=== PATIENT | male | born 1930 | race Caucasian/White ===

== ENCOUNTER 2016-08-13 05:08 | Day surgery (SDC) | payer OTHER ==
[2016-08-13] MEDS ORDERED: LR 1,000 ML ONE (05:31)
[2016-08-13] MEDS ORDERED: KEFZOL 2 GM/D5W 50 ML ONE (05:32)
[2016-08-13] MEDS ORDERED: MARCAINE 0.25% PF ONE (06:37)
[2016-08-13] MEDS ORDERED: NEOSPORIN G.U. IRRIGANT ONE (06:37)
[2016-08-13] MEDS ORDERED: DIPRIVAN 1% ONE (07:27)
[2016-08-13] MEDS ORDERED: FENTANYL ONE ×2 (07:27→07:38)
[2016-08-13 08:23] VITALS: BP 144/66
--- NOTE | 2016-08-13 09:33 | OPERATIVE NOTE ---
PROCEDURE DATE: 08/13/2016 DATE OF SURGERY: 08/13/2016. PREOPERATIVE DIAGNOSIS: Left carpal tunnel syndrome. POSTOPERATIVE DIAGNOSIS: Left carpal tunnel syndrome. PROCEDURE: Left carpal tunnel release. SURGEON: Dr. Koby Gomez. VIDEOGAME DESIGNER: PAIGE Snyder. ANESTHESIA: General. IV FLUIDS: 400 mL lactated Ringer. ESTIMATED BLOOD LOSS: Zero. TOURNIQUET TIME: 9 minutes at 250 mmHg. COMPLICATIONS: None. INDICATIONS: The patient is a pleasant 86-year-old male with chronic history of pain, paresthesia of left upper extremity. EMG nerve study revealed left carpal tunnel syndrome. Recommendation to proceed with left carpal tunnel release was offered. Risks and benefits of surgery were explained, including the risks of anesthesia, , bleeding, infection, failure to relieve pain, postoperative stiffness, nerve injury, blood clots, and other imponderables. All questions were answered. The patient's family wished to proceed with surgery. DETAILS OF OPERATION: The patient was taken to the operating room and placed supine on the operating table. Once adequate anesthesia was obtained, patient's left upper extremity was subsequently prepped and draped in the usual sterile fashion. Esmarch was used to exsanguinate the left upper extremity and the tourniquet was inflated to 250 mmHg. Attention was turned to the base of the hand in line with the third web space. A small longitudinal incision was made. Careful dissection was performed through the superficial fascia. Right angle retractor was then placed. The transverse carpal ligament was then identified and carefully incised full thickness with a 15 blade. A Tererro was then passed in the undersurface distally. Under direct visualization, the distal aspect of the transverse carpal ligament was then released. In likewise fashion, a Tererro was then passed proximally and the proximal aspect of the transverse carpal ligament was released along with the volar fascia. There appeared to be good release both proximally and distally. The median nerve had no obvious pathology. The wound was copiously irrigated. A 4-0 nylon was used to close skin in an interrupted fashion. Quarter percent Marcaine without epinephrine was injected locally. Adaptic, sterile 4 x 4s, Webril and Jaison wrap was applied to the left upper extremity. Patient tolerated the procedure well with no complications. Transferred to recovery room in stable condition.
[2016-08-13] MEDS ORDERED: DECADRON ONE (11:46)
[2016-08-13] MEDS ORDERED: NEO-SYNEPHRINE ONE (11:46)
[2016-08-13] MEDS ORDERED: ZOFRAN ONE (11:46)
[2016-08-13] MEDS ORDERED: EPHEDRINE ONE (11:46)
[2016-08-13] MEDS ORDERED: XYLOCAINE-MPF 2% ONE (11:46)
== END 2016-08-13 08:28 | disposition home or self-care (01) ==
LOC: OPS 05:08
PROVIDERS: ATTEND Orthopaedic Surgery Adult Reconstructive Orthopaedic Surgery
DX: G56.02 Carpal tunnel syndrome, left upper limb (principal); M18.12 Unilateral primary osteoarthritis of first carpometacarpal joint, left hand; G89.29 Other chronic pain; M79.622 Pain in left upper arm; I10 Essential (primary) hypertension; E78.5 Hyperlipidemia, unspecified; I25.10 Atherosclerotic heart disease of native coronary artery without angina pectoris; R20.0 Anesthesia of skin; R20.9 Unspecified disturbances of skin sensation; Z95.5 Presence of coronary angioplasty implant and graft; Z95.0 Presence of cardiac pacemaker; Z98.1 Arthrodesis status; Z95.1 Presence of aortocoronary bypass graft; Z79.02 Long term (current) use of antithrombotics/antiplatelets; Z79.82 Long term (current) use of aspirin; Z79.899 Other long term (current) drug therapy
CPT/HCPCS: J0690; J1100; J2370; J2405; J3010; J7120; S0020

== ENCOUNTER 2016-11-09 09:21 | Observation (INO) ==
[2016-11-09 10:36] LABS: MANUAL DIFF NEEDED? NO
--- NOTE | 2016-11-09 10:38 | PROVIDER DOCUMENTATION ---
HPI-Neurological Disorder - General Chief Complaint: Numbness Stated Complaint: STROKE LIKE SX Time Seen by Provider: 11/09/16 09:59 Source: patient Allergies/Adverse Reactions: Patient Allergies Allergy/AdvReac Type Severity Reaction Status Date / Time No Known Allergies Allergy Verified 11/20/15 09:59 Home Medications: Home Medication List Medication Instructions Recorded Confirmed Last Taken Type Aspirin 81 mg PO DAILY 08/11/16 11/09/16 11/08/16 09:00 History 81 MG Carvedilol [Coreg] 25 mg PO DAILY 08/11/16 11/09/16 11/08/16 09:00 History 25 MG Clopidogrel [Plavix] 75 mg PO DAILY 08/11/16 11/09/16 11/08/16 09:00 History 75 MG Losartan [Cozaar] 100 mg PO DAILY 08/11/16 11/09/16 11/08/16 09:00 History 100 MG Nifedipine E.r. [Adalat cc] 30 mg PO DAILY 08/11/16 11/09/16 11/08/16 09:00 History 30 MG - History of Present Illness-Neuro Nature of Presenting Problem: Pt is an 83yo M who is fully functional and independent. Reports got up at 7AM this morning and started to feel L facial and LUE numbness. Pt is pretty positive that the symptoms started after he woke up and got up. He had no focal weakness and he had no difficulty putting his cloth on. Reports his BP at that time when he checked at home was 172/72, which was normal for him. Denies PARDO/N/V /blurry vision/LOC/CP/F/C. Reports his symptoms are resolving when see at ER. Pt has a pacer since 6-7 years ago and he had a new device placed X 2 years ago. Denies any concerns for pacer malfunction. Headache Location: reports: other (See above) Severity: reports: mild Onset/Duration: reports: 1-3 hours ago Timing: reports: still present, improving Context: denies: found unresponsive by half-way staff, found unresponsive by bystander, drug abuse, overdose, head injury, recent infection, fever, impaired speech, paresthesia, facial droop, falling, seizure activity Approximate time patient was last seen normal?: 07:00 (This morning) Character of Altered Mental Status: denies: disoriented, confused, combative, agitated, trouble concentrating, unresponsive, seizure activity, decreased responsiveness, unchanged from baseline Any recent trauma/injury?: reports: none Character of Deficits: reports: altered sensation. denies: new weakness, vision problem/glaucoma, impaired speech, impaired swallowing, decreased ability to stand, decreased ability to walk, falling New weakness or altered sensation location:: reports: RUE, right facial Cognitive Baseline: alert, oriented x3 Gait Baseline: walks without assistance Associated Symptoms: reports: paresthesia. denies: short of breath, headache, fainting, dizziness, confusion, chest pain, nausea, numbness in legs/feet, ringing in ears, seizures, sleepy, slurred speech, tingling in legs/feet, trouble walking, vomiting Similar Symptoms Previously?: No Recently seen or treated by another doctor?: No - Seizure First time to have a seizure?: No Witnessed seizure?: No Review of Systems - Adult - REVIEW OF SYSTEMS - ADULT Constitutional: reports: no symptoms reported. denies: fever, fatique Eyes: reports: no symptoms reported Ears, Nose, Mouth & Throat: reports: no symptoms reported Cardiovascular: reports: see HPI. denies: chest pain, edema, heart murmur, irregular heart rate Respiratory: reports: no symptoms reported, see HPI. denies: cough Gastrointestinal: reports: no symptoms reported Genitourinary: reports: no symptoms reported Musculoskeletal: reports: no symptoms reported Integumentary: reports: no symptoms reported Neurological: reports: see HPI, paresthesia. denies: ataxia, dizziness/vertigo , headache/migraines, loss of balance, numbness, seizure, slurred speech, syncope, tremors Psychiatric: reports: no symptoms reported. denies: anxiety, anti-depressant use, alcohol/drug dependence, depression, emotional problems, insomnia, panic attacks, suicidal thoughts Endocrine: reports: no symptoms reported Hematologic/Lymphatic: reports: no symptoms reported Allergic/Immunologic: reports: no symptoms reported All Other Systems: Reviewed and Negative Past History - Adult - PAST MEDICAL HISTORY-ADULT Review of Records: reports: Old Records Reviewed, Nursing Assessment Review, Medications Reviewed, Social history reviewed & non-contributory. Cardiovascular: reports: CAD, HTN Musculoskeletal: reports: intervertebral disc disease - PRIOR SURGERIES/PROCEDURES Surgical/Procedure History: reports: CABG, cardiac stent, back/neck - IMMUNIZATION STATUS Childhood Immunizations: See Nurse Assessment Flu Vaccine: See Nurse Assessment - FAMILY HISTORY Family History: reviewed, not pertinent Physical Exam- Neurological - Physical Exam-Neuro Initial Vital Signs Reviewed: Yes General Appearance: appears well, alert, mild distress Eye Exam: bilateral eye: PERRL, EOMI HENMT: normocephalic/atraumatic, moist mucous membranes, normal ENT inspection Head Injury: no evidence of injury, active bleeding Neck: non-tender, full range of motion, supple Respiratory: chest non-tender, lungs clear, normal breath sounds, no pleuratic chest pain, no respiratory distress, no accessory muscle use, respiratory distress, decreased breath sounds Cardiovascular: normal peripheral pulses, regular rate, rhythm, no edema, no gallop, no JVD, no murmur Abdominal Exam: normal bowel sounds, non tender, soft, no organomegaly, no pulsatile mass, abdominal bruit, abnormal bowel sounds Extremity: normal range of motion, non-tender, normal gait, normal inspection, no pedal edema, no calf tenderness, normal capillary refill inspector casing Exam: normal hearing, normal speech, PERRL Coordination/Gait: normal finger to nose, normal gait, negative Romberg's sign Motor/Sensory: no motor deficit, no sensory deficit, no pronator drift, negative Babinski's sign. negative: sensory deficit, weak motor strength RUE, weak motor strength LUE, weak motor strength RLE, weak motor strength LLE Neurologic: no motor/sensory deficits, abnormal gait, aphasia. negative: facial droop, focal weakness, motor weakness, sensory deficit Integumentary: normal color, normal turgor, warm/dry - Glascow Coma Scale Best Eye Response: (4) open spontaneously Best Verbal Response: (5) oriented Best Motor Response: (6) obeys commands Total Glascow Score: 15 Progress - PLAN OF CARE/RESULTS Progress/Plan/Lab Results: Vital Signs - 8 hr 11/09/16 09:23 11/09/16 11:04 Temperature 97.7 F Pulse Rate 60 60 Respiratory Rate 20 17 Blood Pressure 170/76 183/83 O2 Sat by Pulse Oximetry 100 98 Laboratory Results - last 24 hr 11/09/16 11/09/16 11/09/16 09:45 09:45 09:45 WBC 6.58 RBC 3.83 L Hgb 11.7 L Hct 34.7 L MCV 90.6 MCH 30.5 MCHC 33.7 RDW Std Deviation 13.6 Plt Count 204 MPV 9.7 Immature Gran % (Auto) 0.3 Neut % (Auto) 62.2 Lymph % (Auto) 21.0 [place] % (Auto) 12.9 H Eos % (Auto) 3.0 Baso % (Auto) 0.6 Immature Gran # (Auto) 0.02 Neut # (Auto) 4.09 Lymph # (Auto) 1.38 [place] # (Auto) 0.85 H Eos # (Auto) 0.20 Baso # (Auto) 0.04 PT 10.4 INR 0.99 PTT (Actin FS) 25.9 Sodium 140 Potassium 4.4 Chloride 105 Carbon Dioxide 25 Anion Gap 10 BUN 22 Creatinine 1.3 H Estimated GFR/1.73 m2 52 BUN/Creatinine Ratio 17 Glucose 89 Calculated Osmolality 282 Calcium 8.4 L Total Bilirubin 0.26 AST 17 ALT 12 Alkaline Phosphatase 100 Creatine Kinase 52 Troponin T Total Protein 6.6 Albumin 3.2 L Globulin 3.4 Albumin/Globulin Ratio 0.9 Urine Source Urine Color Urine Turbidity Urine pH Ur Specific [place] Urine Protein Ur Glucose (Stick) Ur Ketones (Stick) Urine Blood Urine Nitrite Urine Bilirubin Urobilinogen Dipstick Urine Leukocytes Urine WBC (Auto) Urine RBC (Auto) U Epithel Cells (Auto) Urine Bacteria (Auto) 11/09/16 11/09/16 09:45 10:47 WBC RBC Hgb Hct MCV MCH MCHC RDW Std Deviation Plt Count MPV Immature Gran % (Auto) Neut % (Auto) Lymph % (Auto) [place] % (Auto) Eos % (Auto) Baso % (Auto) Immature Gran # (Auto) Neut # (Auto) Lymph # (Auto) [place] # (Auto) Eos # (Auto) Baso # (Auto) PT INR PTT (Actin FS) Sodium Potassium Chloride Carbon Dioxide Anion Gap BUN Creatinine Estimated GFR/1.73 m2 BUN/Creatinine Ratio Glucose Calculated Osmolality Calcium Total Bilirubin AST ALT Alkaline Phosphatase Creatine Kinase Troponin T < 0.010 Total Protein Albumin Globulin Albumin/Globulin Ratio Urine Source CLEAN CATCH Urine Color STRAW Urine Turbidity CLEAR Urine pH 6.5 Ur Specific [place] 1.004 Urine Protein 300 A Ur Glucose (Stick) NEGATIVE Ur Ketones (Stick) NEGATIVE Urine Blood MODERATE A Urine Nitrite NEGATIVE Urine Bilirubin NEGATIVE Urobilinogen Dipstick NORMAL Urine Leukocytes NEGATIVE Urine WBC (Auto) <10 Urine RBC (Auto) 10-20 A U Epithel Cells (Auto) <10 Urine Bacteria (Auto) NEGATIVE Orders Category Date Time Status Cardiac Monitoring DIRECTED Care 11/09/16 10:12 Active Finger Stick Blood Sugar (ED) DIRECTED Care 11/09/16 10:12 Active Saline Loc NOW Care 11/09/16 10:12 Active CHEST-PORTABLE [RAD] Stat Exams 11/09/16 10:12 Taken HEAD W/O CONTRAST [CT] Stat Exams 11/09/16 10:12 Completed CBC WITH ELECTRONIC DIFF [HEME] Stat Lab 11/09/16 09:45 Completed CK PROFILE [SP CHEM] Stat Lab 11/09/16 09:45 Completed COMPREHENSIVE METABOLIC PANEL [CHEM] Stat Lab 11/09/16 09:45 Completed PROTIME WITH INR [COAG] Stat Lab 11/09/16 09:45 Completed PTT [COAG] Stat Lab 11/09/16 09:45 Completed TROPONIN T Stat Lab 11/09/16 09:45 Completed URINALYSIS W/POSS RFLX CULT-1 [URINALYSIS] Stat Lab 11/09/16 10:47 Completed Pulse Oximetry Stat Oth 11/09/16 10:12 Completed EKG [EKG] Stat Ther 11/09/16 10:12 Ordered Result Diagrams: 11/09/16 09:45 11/09/16 09:45 - REASSESSMENT Reassessment #1 Time Reassessed: 11:58 Status: improving (Pt is doing stable. Pt is still has T hand numbness. BP was 203/98 at one point. TIA was most likely the diagnosis. Pt and family requested to be admitted and closely monitored. Called hospitalist for admission. Pt does not feel safe to do an out pt w/u tomorrow via PCP. Plus pt lost his last year and he lives at home by himself.) - EKG 1 EKG Interpretation (*Must complete 3 of following elements*): Abnormal Rate: 61 Rhythm: Paced - XRAY 1 XRAY Study: Chest Impression: Normal - CT/MRI 1 CT Study: Head Impression: Normal - CONSULTS/PCP/HOSPITALIST Notification #1 *Consult/PCP/Hospitalist*: Rudy/Dr. Cid Time Discussed: 12:02 Consult Disposition: Will see in ED, Admit Departure - Departure Date of Disposition Decision: 11/09/16 Time of Disposition Decision: 12:01 DIAGNOSIS: TIA (transient ischemic attack) Qualifiers: Transient cerebral ischemia type: unspecified Qualified Code(s): G45.9 - Transient cerebral ischemic attack, unspecified Disposition: ADMITTED INPATIENT 09 Certified Medical Emergency: Emergent Condition: Stable Referrals and Follow-Ups: Ramirez Parekh [Primary Care Provider] - - Critical Care Note This patient required my direct & personal management of CC.: No
--- NOTE | 2016-11-09 10:42 | Diag Imaging Result Doc PS360 ---
EXAM: HEAD W/O CONTRAST INDICATION: AMS COMPARISON: None. 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 There is no definite acute infarct given the limited sensitivity of CT versus MRI. There is no discrete intracranial mass, mass effect, or intracranial hemorrhage. There is minimal ethmoid sinus mucosal disease. Surrounding soft tissues and bony structures are grossly unremarkable, otherwise. IMPRESSION: No evidence of acute intracranial pathology. Electronically signed by Johnson Degroot 11/09/2016 10:40 AM
[2016-11-09 10:43] LABS: BASO% 0.6 % (0.0-0.8); HEMATOCRIT 34.7 % (42.0-52.0); HEMOGLOBIN 11.7 g/dL (14.0-18.0); IMM GRAN# 0.02 X1000 (0.0-0.04); IMM GRAN% 0.3 % (0.0-0.5); LYMPH# 1.38 X1000 (1.2-3.4); MCH 30.5 PG (27-31); MCHC 33.7 g/dL (33-37); MCV 90.6 FL (81-99); MONO# 0.85 X1000 (0.11-0.59); MONO% 12.9 % (1.7-9.3); MPV 9.7 FL (7.4-10.4); NEUT% 62.2 % (42.2-75.2); PLT 204 X1000 (130-400); RBC 3.83 XMIL (4.7-6.1)
[2016-11-09 10:51] LABS: INR 0.99; PROTIME 10.4 Seconds (9.2-11.7); PTT 25.9 Seconds (22.0-36.0)
[2016-11-09 10:57] LABS: ALBUMIN 3.2 g/dL (3.5-5.0); CALCIUM 8.4 mg/dL (8.8-10.2); POTASSIUM 4.4 mmol/L (3.5-5.1); TOTAL BILIRUBIN 0.26 mg/dL (0.20-1.00); TOTAL PROTEIN 6.6 g/dL (6.3-8.3)
[2016-11-09 11:10] LABS: URINE CULTURE NEEDED? NO; URINE MICRO REVIEW NEEDED? NO; URINE SOURCE CLEAN CATCH
[2016-11-09 11:12] LABS: BILIRUBIN URINE NEGATIVE (NEGATIVE); BLOOD URINE MODERATE (NEGATIVE); COLOR STRAW; GLUCOSE URINE NEGATIVE (NEGATIVE); LEUKOCYTES URINE NEGATIVE (NEGATIVE); NITRITE URINE NEGATIVE (NEGATIVE); PH URINE 6.5; PROTEIN URINE 300 mg/dL (NEGATIVE); SP GRAVITY URINE 1.004; TURBIDITY URINE CLEAR (CLEAR); UROBILINOGEN URINE NORMAL (NORMAL)
[2016-11-09 11:13] LABS: UR EPITHELIAL CELLS <10 /HPF (<10); URINE BACTERIA NEGATIVE /HPF; URINE WBC <10 /HPF (<10)
--- NOTE | 2016-11-09 13:11 | Diag Imaging Result Doc PS360 ---
EXAM: CHEST-PORTABLE INDICATION: AMS TECHNIQUE: One view COMPARISON: 08/23/2015 FINDINGS: The lungs are grossly clear. There is no discrete pleural fluid collection or pneumothorax. There are stable CABG changes. A left-sided pacemaker is in stable position. Cardiac silhouette and central vasculature are grossly unremarkable, otherwise. IMPRESSION: Stable chest with no definite acute pathology. Electronically signed by Johnson Degroot 11/09/2016 1:08 PM
--- NOTE | 2016-11-09 14:53 | HISTORY AND PHYSICAL ---
FUNDER: Dr. Brenda Fernandez. PCP: Dr. Ramirez Parekh. CHIEF COMPLAINT: Right-sided weakness and numbness. HISTORY OF PRESENT ILLNESS: Mr. Weaver is a very pleasant 86-year-old male with a history of coronary disease status post SD and CABG, also with a history of a permanent pacemaker. Presents with acute onset of right facial numbness with that numbness radiating down his right arm and causing him to have right hand numbness and weakness. Began around 7 o' clock this morning while he was at home. Symptoms concerned him enough to come to the ER. In the ER he had a head CT done. It showed possibly a tiny chronic lacunar infarct involving the right caudate head otherwise nothing acute. His laboratory data showed some mild anemia and renal insufficiency but otherwise no acute findings there. His EKG shows paced rhythm. He is still currently having symptoms but is alert and oriented. He does not have any overt unilateral weakness but he does have subjective weakness and numbness on the right upper and lower extremity along with the right side of his face. He is going to be admitted for observation for further treatment and evaluation. Of note, he cannot have an MRI secondary to his pacemaker. PAST MEDICAL HISTORY: 1. Coronary disease status post SD. 2. Hypertension. 3. Questionable history of irregular heartbeat. The patient is unsure the exact name of but he states atrial fibrillation does not sound familiar to him. PAST SURGICAL HISTORY: He has had a CABG, pacemaker, coronary stenting and ACDF. SOCIAL HISTORY: No history of tobacco, alcohol or drug use. He lives alone. He has 2 daughters. FAMILY HISTORY: Noncontributory. REVIEW OF SYSTEMS: Fourteen-point review of systems obtained and found to be negative with the exception of the HPI. ALLERGIES: No known drug allergies. HOME MEDICATIONS: Aspirin 81 mg daily, Coreg 25 mg daily, Plavix 75 mg daily, Cozaar 100 mg daily, nifedipine ER 30 mg daily. PHYSICAL EXAMINATION: VITAL SIGNS: Blood pressure is 190/110, heart rate 60, respiratory rate 16, O2 saturation 98% on room air. Temperature is 97.7 degrees. GENERAL: This is a elderly but well-nourished male lying in hospital bed in no acute distress. NEUROLOGIC: The patient is awake and alert. He follows commands. Perhaps some very mild weakness of the right upper and lower extremity and decreased sensation in his right face, right hand and right foot versus the left. HEENT: Head atraumatic and normocephalic. His pupils are equal, round, reactive to light. Oral mucosa is moist. Trachea is midline. No JVD. CHEST: Clear to auscultation bilaterally. CV: Regular S1-S2 is noted. No murmurs. GI: Soft, nondistended, nontender. Bowel sounds positive. EXTREMITIES: One to 2+ edema bilaterally. Pulses diminished but palpable bilaterally. DIAGNOSTIC DATA: Head CT shows chronic changes, nothing acute. EKG paced rhythm. Chest x-ray negative. WBC 6.58, hemoglobin 11.7, hematocrit 34.7, platelet count is 204, 000. PT 10.5, INR 0.99, sodium 140, potassium 4.4, chloride 105, CO2 25, anion gap 10, BUN 22, creatinine 1.3, glucose is 89, calcium 8.4. LFTs within normal limits. Troponin negative. Albumin 3.2. UA shows 300 protein, moderate blood and 10-20 RBCs. ASSESSMENT AND PLAN: 1. Transient ischemic attack versus cerebrovascular accident: Patient's symptoms are consistent with cerebral ischemia. Unfortunately, we will not be able to do an MRI but he certainly has room for medication adjustments. We will make sure he is on a statin and continue his aspirin and Plavix. He is also on a beta-rebekah. Will check carotids and echocardiogram. We will also consult neuro, continue neuro checks and monitor telemetry on the floor. 2. Renal insufficiency: The patient's baseline creatinine seems to be 1.2 and today he is at 1.3 so he is not far off. Will add light IV fluid hydration and monitor. 3. Normocytic anemia: Will check iron studies and treat accordingly. 4. Coronary disease: Will check an echocardiogram, lipid panel, hemoglobin A1c as well as thyroid function, B12 and folate. He denied any chest pain but we will trend his enzymes. 5. Lower extremity edema: We are going to check an echocardiogram and get a proBNP as well, make sure and follow strict I's and O's. 6. Deep vein thrombosis prophylaxis will be provided with Lovenox. Further recommendations to follow. Dictated by CECILIA Zazueta for Petey Cid MD cc: MD Dr. Brenda Munoz Addendum: seen and examined. Agreed MTDD
[2016-11-09] MEDS: LOVENOX SUBQ SCH (18:37)
[2016-11-09] MEDS ORDERED: COREG PO ONE (20:18)
[2016-11-09] MEDS ORDERED: LIPITOR PO SCH (21:00)
--- NOTE | 2016-11-10 06:26 | EKG Report ---
Test Performed on : 11/09/2016 09:32:03 AM Test Reason : AMS Blood Pressure : / mmHG Vent. Rate : 060 BPM Atrial Rate : 060 BPM P-R Int : 166 ms QRS Dur : 174 ms QT Int : 484 ms P-R-T Axes : 000 230 160 degrees QTc Int : 484 ms Normal sinus rhythm. Right bundle branch block Septal infarct , age undetermined Abnormal ECG When compared with ECG of 23-AUG-2015 17:10, IA interval has decreased Left anterior fascicular block is no longer present Septal infarct is now present T wave inversion now evident in Lateral leads Unconfirmed Result
[2016-11-10 06:28] LABS: HEMATOCRIT 34.6 % (42.0-52.0); HEMOGLOBIN 11.4 g/dL (14.0-18.0); MCH 31.1 PG (27-31); MCHC 32.9 g/dL (33-37); MCV 94.3 FL (81-99); MPV 9.7 FL (7.4-10.4); RBC 3.67 XMIL (4.7-6.1)
[2016-11-10 06:46] LABS: HEMOGLOBIN A1C 5.5 % (4.8-6.0)
[2016-11-10 06:55] LABS: CALCIUM 8.6 mg/dL (8.8-10.2); POTASSIUM 4.9 mmol/L (3.5-5.1)
[2016-11-10] MEDS ORDERED: ADALAT CC PO SCH (09:00)
[2016-11-10] MEDS ORDERED: PLAVIX PO SCH (09:00)
[2016-11-10] MEDS ORDERED: ASPIRIN PO SCH (09:00)
[2016-11-10] MEDS ORDERED: COZAAR PO SCH (09:00)
[2016-11-10] MEDS ORDERED: COREG PO SCH (09:00)
--- NOTE | 2016-11-10 15:04 | ECHO REPORT ---
ORDER DATE: 11/09/2016 ECHOCARDIOGRAPHIC MEASUREMENTS: 1. Interventricular septum 1.1. Left ventricular posterior wall 0.9. Diastolic diameter 5.5. Left atrium 4.3. Aorta 3.1. Aortic valve leaflets are sclerosed, trileaflet. Pulmonic valve was normal. Mitral valve was normal. Tricuspid valve was normal. There is left atrial enlargement. 2. There is mitral annular calcification. 3. Pacing leads are noted in the right chamber. 4. There is mild mitral regurgitation. Mild tricuspid regurgitation. Peak velocity across the tricuspid valve was 2.7 m/sec. Pulmonary artery systolic pressure of 39 mmHg. There is trace pulmonary regurgitation. 5. Peak velocity across the aortic valve was 2.2 m/sec. There is no aortic stenosis. There is aortic sclerosis associated with mild aortic regurgitation. 6. There is no pericardial effusion or obvious intracardiac mass or thrombus. cc: MD Darrion Welsh CRNP
[2016-11-10] MEDS: LOVENOX SUBQ SCH (16:13)
[2016-11-10 16:48] VITALS: BP 179/76
--- NOTE | 2016-11-11 07:24 | Carotid Study ---
DATE: 11/09/2016 PROCEDURE: Bilateral duplex and color flow imaging of the carotid arteries was performed using a CrossReader Vivid E9 ultrasound system with a 9-L/9 transducer. REFERRING PHYSICIAN: Dr. Parekh. INTERPRETING PHYSICIAN: ANCELMO: Mook. INDICATIONS: TIA with right-sided weakness. OBSERVED DATA RIGHT LEFT Brachial Blood Pressure Carotid Pulse Bruits: Carotid/Sub DIAGRAM OF ULTRASOUND IMAGING R L RIGHT INT EXT INT EXT LEFT [place] (cm/s) Hen[place] (cm/s) Subclavian 77/0 Subclavian 91/0 CCA Proximal 62/11 CCA Proximal 81/15 CCA Distal 64/17 CCA Distal 65/15 Bulb 62/14 Bulb 78/17 ICA Proximal 121/33 ICA Proximal 58/15 ICA Mid 119/24 ICA Mid 64/17 ICA Distal 74/17 ICA Distal 81/26 ECA 42/4 ECA 99/8 Vertebral 53/13, antegrade flow Vertebral 43/10, antegrade flow ICA/CCA Ratio 1.88 ICA/CCA Ratio 0.99 % Stenosis 40-59% % Stenosis 0-39% FINDINGS: There appears to be moderate stenosis noted to the right carotid artery by strict velocity criteria. There is calcification and atherosclerosis of the bilateral carotid arteries. Both vertebral arteries are antegrade flow. PHYSICIAN INTERPRETATION: Moderate stenosis of the right carotid artery with stenosis 40-59%. The left side is normal to mild by strict velocity criteria. cc: MD Darrion Schulz CRNP
--- NOTE | 2016-11-11 08:06 | ECHO REPORT ---
ORDER DATE: 11/09/2016 ADDENDUM REPORT Normal left ventricular cavity size. Estimated ejection fraction of 40% to 45%. There is global hypokinesis. cc: MD Darrion Welsh CRNP
--- NOTE | 2016-11-11 10:44 | DISCHARGE SUMMARY ---
ADMISSION DATE: 11/09/2016 DISCHARGE DATE: 11/10/2016 PRINCIPAL LIBRARIAN: Dr. Brenda Fernandez. PRIMARY CARE DOCTOR: Dr. Ramirez Parekh. HOSPITAL COURSE: Mr. Weaver presented on 11/09/2016 with right-sided weakness and numbness. He is a very pleasant 86-year-old male history of coronary artery disease status post myocardial infarction and CABG. Also, history of permanent pacemaker. He presented with acute onset of right facial numbness and numbness radiating down to his right arm causing him to have right hand numbness and weakness. It began about 7:00 the morning of admission while he was at home. Symptoms concerned him enough for him to come to the emergency room. 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 Otherwise, nothing acute. An EKG showed sinus rhythm. There was a mild anemia. PAST MEDICAL HISTORY: 1. Coronary artery disease, status post myocardial infarction. 2. Hypertension. 3. Questionable history of irregular heartbeat in the past. Exact name he is not sure, but he thinks it was atrial fibrillation. He is status post coronary artery bypass graft. He has a pacemaker and coronary stenting and AICD or defibrillator pacemaker I believe. He was admitted to the hospital and showed continued improvement, and he really feels no residual and had no trouble with his speech. He is swallowing fine. No weakness in his hand. He had some renal insufficiency. Creatinine showed at 1.2, so, his renal function appeared stable. He has normocytic anemia which is mild. He showed steady improvement. He had an echocardiogram with Doppler done and wait on those results but neurologically back intact. His daughter was there and did state that he seems to have been having some dyspnea and some types of chest pressure when he is walking and he exercises every day, and so I want to encourage him to go and see his ceo and president, Dr. Brenda Fernandez. We will review the orders on the echocardiogram and Doppler and, if they are okay, he will get to go home. DISCHARGE MEDICATIONS: He will go home on 1. Aspirin 81 mg a day. 2. Lipitor 40 mg at bedtime. 3. Coreg 25 mg daily. 4. Plavix 75 mg a day. cc: Domenico Pal MD
--- NOTE | 2016-11-11 12:30 | DISCHARGE SUMMARY ---
ADMISSION DATE: 11/09/2016 DISCHARGE DATE: 11/10/2016 HISTORY AND HOSPITAL COURSE: He presented with right-sided weakness and numbness which resolved. It involved his face, I think his hand mainly. He is an 86-year-old with a history of coronary artery disease status post myocardial infarction and CABG bypass. Has a permanent pacemaker placed. He came in with right facial numbness. The numbness radiated down his right arm and caused him to have right hand numbness and weakness. It began about 7 o'clock the morning of admission; he was at home. Symptoms concerned him enough to come to the ER. 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 Otherwise nothing acute. Lab data showed some mild anemia, renal insufficiency. Otherwise no acute findings. His neurologic symptoms resolved completely. Echocardiogram did not show any mural thrombus. Noninvasive coronary tests were unremarkable. [place] he could go home on 11/10/2016. DISCHARGE MEDICATIONS: He will be on aspirin 81 mg a day, Lipitor 40 mg a day, Coreg 25 mg daily, Plavix 75 mg a day. FOLLOW-UP: I want him to follow up with Dr. Brenda Fernandez in [place], his factory maintenance technician. He is having some shortness of breath. He is describing some chest pain sometimes with exercise as well. cc: MD Ramirez Mahmood MD Kelly Smith
== END 2016-11-10 17:53 | disposition home or self-care (01) ==
LOC: 4N 09:21 → ED 09:21 → SUATTDRO 16:54 → 4N 17:14
PROVIDERS: ATTEND Emergency Medicine